=== PATIENT | male | born 1955 | race Two or more races ===

== ENCOUNTER 2016-09-08 08:50 | Emergency (ER) | payer BC ==
[2016-09-08 10:20] VITALS: BP 132/84
--- NOTE | 2016-09-08 11:04 | RAD ---
INDICATION: Left foot injury. TECHNIQUE: 3 views of the left foot were obtained. FINDINGS: The bones are in normal alignment. No fracture is seen. Joint spaces appear maintained. IMPRESSION: NO EVIDENCE FOR FRACTURE.
--- NOTE | 2016-09-08 11:13 | UC ---
Lower Extremity/Ankle HPI - HPI Summary HPI Summary: Stubbed L 3rd toe about 2 weeks ago and didn't have much pain, but toe was a little swollen and red. Stubbed it again last night, sustained abrasion to top of toe, and was woken out of sleep with tingling in the toe. Only concerned it is broken. Works from home, does not need to wear specific footwear. - History of Current Complaint Chief Complaint: UCLowerExtremity Stated Complaint: TOE INJURY Time Seen by Provider: 09/08/16 10:32 Hx Obtained From: Patient Onset/Duration: Sudden Onset Severity Initially: Mild Severity Currently: Mild Aggravating Factor(s): Standing, Ambulation Alleviating Factor(s): Rest Able to Bear Weight: Yes - Allergies/Home Medications Allergies/Adverse Reactions: Allergies Allergy/AdvReac Type Severity Reaction Status Date / Time No Known Allergies Allergy Verified 09/08/16 10:16 Home Medications: Home Medications NK [No Home Medications Reported] 09/08/16 [History Confirmed 09/08/16] PMH/Surg Hx/FS Hx/Imm Hx Previously Healthy: Yes - Surgical History Surgical History: Yes Surgery Procedure, Year, and Place: sinus - Family History Known Family History: Positive: Hypertension - Social History Occupation: Employed Part-time Alcohol Use: Occasionally Substance Use Type: None Smoking Status (MU): Never Smoked Tobacco Review of Systems Constitutional: Negative Skin: Negative Eyes: Negative ENT: Negative Respiratory: Negative Cardiovascular: Negative Gastrointestinal: Negative Genitourinary: Negative Motor: Negative Neurovascular: Negative Musculoskeletal: Arthralgia - L 3rd toe Neurological: Negative Psychological: Negative All Other Systems Reviewed And Are Negative: Yes Physical Exam Triage Information Reviewed: Yes Appearance: Well-Appearing, No Pain Distress, Well-Nourished Vital Signs: Initial Vital Signs Temp 98.1 F 09/08/16 10:16 Pulse 62 09/08/16 10:16 Resp 16 09/08/16 10:16 BP 132/84 09/08/16 10:16 Pulse Ox 99 09/08/16 10:16 Vital Signs Reviewed: Yes Eye Exam: Normal, Other - PERRL Eyes: Positive: Conjunctiva Clear ENT Exam: Normal ENT: Positive: Normal ENT inspection, Hearing grossly normal, Pharynx normal, TMs normal Dental Exam: Normal Neck exam: Normal Neck: Positive: Supple, Nontender, No Lymphadenopathy Respiratory Exam: Normal Respiratory: Positive: Chest non-tender, Lungs clear, Normal breath sounds, No respiratory distress, No accessory muscle use Cardiovascular Exam: Normal Cardiovascular: Positive: RRR, No Murmur Musculoskeletal Exam: Normal Neurological Exam: Normal Neurological: Positive: Alert Psychological Exam: Normal Skin Exam: Other - abrasion to L 3rd toe Lower Extremity Course/Dx - Differential Dx/Diagnosis Provider Diagnoses: L 3rd toe contusion. L 3rd toe abrasion. L 3rd toe sprain Discharge - Discharge Plan Condition: Stable Disposition: HOME Patient Education Materials: Foot Contusion (ED) Referrals: Tameka Moeller MD [Primary Care Provider] - Additional Instructions: There is no sign of bone injury on your x-ray. Your pain is probably a combination of a contusion and a sprain. The nerve symptoms you have should resolve within days to weeks, as the nerves were probably bruised.
== END 2016-09-08 11:10 | disposition home or self-care (01) ==
LOC: UCEAST 08:50
DX: S90.122A Contusion of left lesser toe(s) without damage to nail, initial encounter (principal); S90.415A Abrasion, left lesser toe(s), initial encounter; S93.505A Unspecified sprain of left lesser toe(s), initial encounter; W22.8XXA Striking against or struck by other objects, initial encounter; Y93.9 Activity, unspecified; Y92.9 Unspecified place or not applicable
CPT/HCPCS: 99211; G0463